=== PATIENT | female | born 1945 | race Caucasian/White ===

== ENCOUNTER → 2017-04-25 | Outpatient (CLI) | payer OTHER ==
[~2017-04-25] MED LIST: ALBUTEROL0.09 MG/A2 INH; ALBUTEROL2.5 MG/0.5 INH; ALLOPURINOL100 MG PO; AMARYL1 MG PO; ANTIVERT25 MG PO; ASPIRIN81 M1 PO; B COMPLEX1 TA1 PO; BUMEX1 MG PO; CARVEDILOL6.25 MG PO; CELEXA20 MG PO; CIPRO250 MG PO; CIPRO500 MG PO; CITALOPRAM20 MG PO; COLCHICINE0.6 MG PO; COREG6.25 MG PO; DUONEB 3 MG/3 ML3 M1 INH; DUONEB 3 MG/3 ML3 M1 NEB; DUREZOL 5 ML5 ML OP; Duoneb 3ML 3 MG/3 ML NEB; FEROSUL325 MG PO; FERROUS SULFAT325 MG PO; FUROSEMIDE10 MG/ML PO; GLIMEPIRIDE1 MG PO; Glimepiride1 MG PO; HYDROCHLOROTHIA PO; ILEVRO OP; INDOCIN50 MG PO; IRON325 M1 PO; IRON325 M2 PO; KEFLEX500 MG PO; LASIX40 MG PO; LEVAQUIN750 M1 PO; LEVAQUIN750 MG PO; LEVOFLOXACIN500 MG PO; LEVOTHYROXIN0.175 MG PO; LEVOTHYROXINE0.2 MG PO; LISINOPRIL40 MG PO; LOVASTATIN20 MG PO; Levoxyl0.137 MG PO; MAXZIDE-25 25 M1 TAB PO; MELOXICAM15 MG PO; METFORMIN500 MG PO; MOBIC15 MG PO; MUCINEX DM 30 M1 TE1 PO; NEBULIZER DEVI; NEURONTIN100 MG PO; OMEPRAZOLE20 M2 PO; OXYGEN NAS; PREDNISONE10 MG PO; PREDNISONE20 M1 PO; PRILOSEC20 MG PO; QVAR 80MCG/INH7.3 G1 INH; SYMBICORT1 AE1 INH; SYNTHROID,LEV175 MCG PO; SYNTHROID0.175 MG PO; TRAMADOL HCL50 MG PO; TRAMADOL HYDRO100 MG PO; TRIAMTERENE/HCT1 TA3 PO; ULTRAM50 MG PO; ZESTRIL,PRINIVI40 MG PO; ZITHROMAX Z-PA250 MG PO; ZYLOPRIM100 MG PO; Zestril,Prinivi40 MG PO; [UNRECOGNIZED DRUG - REMARK]
== END | disposition home or self-care (01) ==
LOC: CARD 10:23
DX: I10 Essential (primary) hypertension (principal)

== ENCOUNTER → 2018-05-28 | Outpatient (CLI) | payer OTHER ==
[~2018-05-28] MED LIST changes: +LEVOTHYROXINE200 MC2 PO; +TRIAMTERENE & H1 CAP PO; +Vitamin D PO
== END | disposition home or self-care (01) ==
LOC: LAB 09:43
DX: E03.9 Hypothyroidism, unspecified (principal)

== ENCOUNTER 2018-11-03 14:31 | Emergency (ER) | payer OTHER ==
[~2018-11-03] VITALS: Ht 152.4 cm; Wt 108.9 kg
--- NOTE | ~2018-11-03 | EKG ---
[place], [place] ELECTROCARDIOGRAM REPORT NAME: CYRIL ABRAHAM UNIT #: [id number] ROOM: DOCTOR: EPIPHANY DRAFT REPORT BIRTHDATE: [birth year] [facility] Test Date: 2018-11-03 Test Time: 15:04:06 Pat Name: CYRIL ABRAHAM Department: Room: Gender: F Contract Driver: Ashleigh Mccollum : 1945 Requested By: DAMARIS MANZANARES Order Number: [id number] Reading MD: Ty Greenberg MD Measurements Intervals [place] Rate: 72 P: 60 [place]: 157 QRS: 6 QRSD: 95 T: 31 QT: 389 QTc: 426 Interpretive Statements Sinus rhythm Borderline T abnormalities, anterior leads Compared to ECG 06/11/2018 12:04:56 T-wave abnormality now present Myocardial infarct finding no longer present Electronically Signed On 11-10-2018 4:06:08 PST by Ty Greenberg MD CM:EKGRPT:ELECTROCARDIOGRAM REPORT [id number] DAMARIS MANZANARES EPIPHANY DRAFT REPORT DAMARIS MANZANARES
[2018-11-03 15:10] LABS: BASO # 0.1 10*3/uL (0.0-0.1); BASO % 0.7 % (0.0-1.0); EOS # 0.5 10*3/uL (0.0-0.4); EOS % 5.3 % (1.0-4.0); HEMATOCRIT 37.1 % (37.0-47.0); HEMOGLOBIN 11.6 g/dl (12.0-16.0); LYMPH % 11.2 % (27.0-41.0); MEAN CELL VOLUME 92.3 fl (81.0-99.0); MEAN CORPUSCULAR HGB 28.9 pg (27.0-31.0); MEAN CORPUSCULAR HGB CONC 31.3 g/dl (33.0-37.0); MEAN PLATELET VOLUME 9.7 fl (9.6-12.3); MONO # 0.5 10*3/uL (0.1-1.0); MONO % 5.8 % (3.0-9.0); NEUT # 6.5 10*3/uL (2.3-7.9); NEUT % 76.6 % (47.0-73.0); PLATELET COUNT AUTOMATED 273 10*3/uL (130-400); RED BLOOD COUNT 4.02 10*6/uL (4.10-5.10); RED CELL DISTRI WIDTH 14.2 % (0-14.5); WHITE BLOOD COUNT 8.5 10*3/uL (4.8-10.8)
[2018-11-03 15:19] LABS: ACT PARTIAL THROMBO TIME 24.4 SECONDS (20.8-31.5); INTERNATIONAL NORM RATIO 0.9 (2.0-3.5)
[2018-11-03 15:31] LABS: ALKALINE PHOSPHATASE 95 U/L (45-117); BUN 21 mg/dl (7-24); CHLORIDE 104 mmol/L (98-107); CREATININE 0.95 mg/dL (0.55-1.02); LIPASE 78 U/L (73-393); POTASSIUM 4.2 mmol/L (3.5-5.1); SGOT/AST 8 IU/L (3-35); SGPT/ALT 17 U/L (12-78); SODIUM 138 mmol/L (136-145); TOTAL PROTEIN 7.8 gm/dL (6.4-8.2)
[2018-11-03 15:32] LABS: TROPONIN I < 0.015 ng/ml (<0.045)
[2018-11-03] MEDS ORDERED: PREDNISONE10 MG PO (16:24)
[2018-11-03] MEDS ORDERED: TESSALON PERLE100 M1 PO (16:25)
== END 2018-11-03 16:36 | disposition home or self-care (01) ==
LOC: ED 14:31
PROVIDERS: Nurse Practitioner Family
DX: J40 Bronchitis, not specified as acute or chronic (principal); J44.9 Chronic obstructive pulmonary disease, unspecified; E11.22 Type 2 diabetes mellitus with diabetic chronic kidney disease; I13.0 Hypertensive heart and chronic kidney disease with heart failure and stage 1 through stage 4 chronic kidney disease, or unspecified chronic kidney disease; N18.3 Chronic kidney disease, stage 3 (moderate); I50.32 Chronic diastolic (congestive) heart failure; G89.29 Other chronic pain; I25.10 Atherosclerotic heart disease of native coronary artery without angina pectoris; K21.9 Gastro-esophageal reflux disease without esophagitis; E03.9 Hypothyroidism, unspecified; E66.01 Morbid (severe) obesity due to excess calories; I25.2 Old myocardial infarction; Z68.43 Body mass index [BMI] 50.0-59.9, adult; Z90.710 Acquired absence of both cervix and uterus; Z90.49 Acquired absence of other specified parts of digestive tract

== ENCOUNTER 2018-12-06 06:30 | Emergency (ER) | payer OTHER ==
[~2018-12-06] VITALS: Ht 167.6 cm; Wt 136.1 kg
--- NOTE | ~2018-12-06 | EKG ---
[place], [place] ELECTROCARDIOGRAM REPORT NAME: CYRIL ABRAHAM UNIT #: [id number] [facility] BIR[facility]: [birth year] [facility] Test Date: 2018-12-06 Test Time: 06:43:21 Pat Name: CYRIL ABRAHAM Department: Room: Gender: F [employer] Superintendent: Ashleigh Mccollum : 1945 Requested By: JAZMÍN GILL Order Number: [id number] Reading MD: Annia Bloom Measurements Intervals [place] Rate: 82 P: 59 [place]: 168 QRS: -30 QRSD: 120 T: 100 QT: 414 QTc: 484 Interpretive Statements Sinus rhythm Probable left atrial enlargement Incomplete left bundle branch block Anterior Q waves, possibly due to ILBBB Compared to ECG 11/03/2018 15:04:06 Left bundle-branch block now present Q waves now present T-wave abnormality no longer present Electronically Signed On 12-06-2018 11:07:21 PDT by Annia Bloom CM:EKGRPT:ELECTROCARDIOGRAM REPORT [id number] JAZMÍN MCGEE DRAFT REPORT JAZMÍN GILL DO
[~2018-12-06 06:30] MED LIST changes: +TESSALON PERLE100 M1 PO
[2018-12-06 07:01] LABS: HEMATOCRIT 38.9 % (37.0-47.0); HEMOGLOBIN 11.2 g/dl (12.0-16.0); MEAN CELL VOLUME 96.5 fl (81.0-99.0); MEAN CORPUSCULAR HGB 27.8 pg (27.0-31.0); MEAN CORPUSCULAR HGB CONC 28.8 g/dl (33.0-37.0); MEAN PLATELET VOLUME 10.2 fl (9.6-12.3); PLATELET COUNT AUTOMATED 287 10*3/uL (130-400); RED BLOOD COUNT 4.03 10*6/uL (4.10-5.10); RED CELL DISTRI WIDTH 14.8 % (0-14.5); WHITE BLOOD COUNT 14.6 10*3/uL (4.8-10.8)
[2018-12-06 07:08] LABS: BILIRUBIN NEGATIVE (NEGATIVE); BLOOD NEGATIVE (NEGATIVE); CLARITY SL CLOUDY (CLEAR); COLOR YELLOW (YELLOW); GLUCOSE NEGATIVE (NEGATIVE); KETONE NEGATIVE (NEGATIVE); LEUKO ESTERASE TRACE (NEGATIVE); NITRITE POSITIVE (NEGATIVE); PH 5.5 (5.0-9.0); UROBILINOGEN 0.2 E.U./dl (0.2-1.0)
[2018-12-06 07:13] LABS: ABG HCO3 18.4 mmol/l (22-26); ABG O2 SATURATION 96.5 % (95-97); ARTERIAL BLOOD GAS PCO2 53.5 mmHg (35-45)
[2018-12-06 07:13] LABS: INTERNATIONAL NORM RATIO 0.9 (2.0-3.5)
[2018-12-06 07:21] LABS: ABG BASE EXCESS -10.2 mmol/L (-2.0-2.0)
[2018-12-06 07:23] LABS: ARTERIAL BLOOD GAS PH 7.157 (7.35-7.45)
[2018-12-06 07:24] LABS: ALBUMIN 2.7 gm/dl (3.1-4.5); ALKALINE PHOSPHATASE 103 U/L (45-117); BUN 29 mg/dl (7-24); CHLORIDE 107 mmol/L (98-107); CREATININE 1.33 mg/dL (0.55-1.02); POTASSIUM 4.2 mmol/L (3.5-5.1); SGOT/AST 30 IU/L (3-35); SGPT/ALT 25 U/L (12-78); SODIUM 141 mmol/L (136-145); TOTAL PROTEIN 7.1 gm/dL (6.4-8.2)
[2018-12-06 07:26] LABS: TROPONIN I < 0.015 ng/ml (<0.045)
[2018-12-06 07:28] LABS: PLATELET SUFFICIENCY NORMAL (NORMAL); TOTAL CELLS COUNTED 100 #CELLS
[2018-12-06 07:31] LABS: BACTERIA 4+; WBC 21-30 wbc/hpf (0-5)
== END 2018-12-06 08:30 | disposition short-term general hospital (02) ==
LOC: ED 06:30
PROVIDERS: Emergency Medicine
DX: I46.9 Cardiac arrest, cause unspecified (principal); M19.90 Unspecified osteoarthritis, unspecified site; I25.10 Atherosclerotic heart disease of native coronary artery without angina pectoris; I13.0 Hypertensive heart and chronic kidney disease with heart failure and stage 1 through stage 4 chronic kidney disease, or unspecified chronic kidney disease; E11.22 Type 2 diabetes mellitus with diabetic chronic kidney disease; N18.3 Chronic kidney disease, stage 3 (moderate); I50.32 Chronic diastolic (congestive) heart failure; J44.9 Chronic obstructive pulmonary disease, unspecified; K21.9 Gastro-esophageal reflux disease without esophagitis; M10.9 Gout, unspecified; E03.9 Hypothyroidism, unspecified; Z99.81 Dependence on supplemental oxygen; Z90.49 Acquired absence of other specified parts of digestive tract; Z90.710 Acquired absence of both cervix and uterus; Z86.73 Personal history of transient ischemic attack (TIA), and cerebral infarction without residual deficits; Z98.890 Other specified postprocedural states; Z79.899 Other long term (current) drug therapy